=== PATIENT | male | born 1960 | race Caucasian/White ===

== ENCOUNTER → 2024-02-10 06:28 | Day surgery (SDC) | payer OTHER, SELFPAY | LOC: GI 06:28 | PROVIDERS: ATTENDING PHYSICIAN Specialist; FAMILY PHYSICIAN Family Medicine | DX: K52.9 Noninfective gastroenteritis and colitis, unspecified (principal); K57.30 Diverticulosis of large intestine without perforation or abscess without bleeding | CPT/HCPCS: 45380; 88305 ==

== ENCOUNTER → 2025-03-27 08:03 | Outpatient (REF) | payer SELFPAY | LOC: HWRAD 08:03 | PROVIDERS: ATTENDING PHYSICIAN Internal Medicine Cardiovascular Disease; FAMILY PHYSICIAN Family Medicine | DX: I10 Essential (primary) hypertension (principal) | CPT/HCPCS: 75571 ==

== ENCOUNTER → 2025-05-23 18:07 | Outpatient (REF) | payer OTHER, SELFPAY | LOC: PAVMRI 18:07 | PROVIDERS: ATTENDING PHYSICIAN Anesthesiology Pain Medicine; FAMILY PHYSICIAN Family Medicine | DX: M54.12 Radiculopathy, cervical region (principal) | CPT/HCPCS: 72141 ==